=== PATIENT | female | born 1975 | race Caucasian/White ===

== ENCOUNTER 2024-10-03 02:42 | Emergency (ER) | payer SELFPAY ==
[2024-10-03 02:53] VITALS: BP 188/145; PULSE 83; RESP 20; TEMP 36.5; O2SAT 99; BMI 25.9
[2024-10-03] MEDS: morphine 4 mg/mL SDV 1 mL IVP ×2 (03:22→04:47)
[2024-10-03] MEDS: orphenadrine 30 mg/mL Inj 2 mL 60 MG IM (03:22)
--- NOTE | 2024-10-03 03:59 | ED_ITS ---
HPI - Extremity Problem General: Chief complaint: Extremity Problem,Nontraumatic Stated complaint: Syatic nerve swelling RT foot Time Seen by Provider: 10/03/24 02:50 History of Present Illness: 49-year-old female comes in the emergenc y department right leg pain radiating down into her foot up from her back. She was seen a few days ago and prescribed steroids and tizanidine. She did not get the prednisone because she had googled it and thought it was too dangerous to take. No other injury. Associated symptoms: Deny chest pain, fever(s) or rash Related Data Previous Rx's ?Medication ?Instructions ?Recorded naproxen 500 mg tablet 500 mg PO BID #30 tabs 09/30 prednisone 20 mg tablet See Rx Instructions PO DAILY #19 09/30/24 tabs tizanidine 2 mg tablet 2 mg PO BID PRN muscle spast icity 09/30/24 #30 tabs hydrocodone 5 mg-acetaminophen 325 1 tab PO Q6H PRN pa in #12 tabs 10/03/24 mg tablet pregabalin 75 mg capsule (Lyrica) 75 mg PO BID #30 cap s 10/03/24 Allergies Allergy/AdvReac Type Severity Reaction Status Date / Time Penicillins Allergy Mild ALGY-Hives Verified 09/30/24 15:23 Review of Systems Const: Denies: fever(s) or chills Card: Denies: chest pain Resp: Denies: dyspnea GI: Denies: abdominal pain : Denies: dysuria, urinary frequency or urinary urgency Musc: Reports: back pain; Denies: neck pain Skin/Breast: Denies: rash PFSH ED PFSH: Social History Smoking and tobacco/nicotine status: current every day tobacco/nicotine user Physical Exam Const: GENERAL APPEARANCE: cooperative ORIENTATION/CONSCIOUSNESS: Yes a wake, Yes oriented to person, Yes oriented to place and Yes oriented to time HENMT: COMMON NORMALS: normocephalic, atraumatic and hearing grossly normal bilaterally HEAD & SCALP: normocephalic and atraumatic Resp: COMMON NORMALS: normal respiratory effort, No retractions, No use of accessory muscles and clear to auscultation bilaterally AUSCULTATION: clear to auscultation bilaterally Cardio: COMMON NORMALS: regular rate, regular rhythm and No murmurs present (Cardio) RATE: regular rate RHYTHM: regular rhythm Extremity: COMMON NORMALS: normal to inspection, capillary refill normal, no clubbing, cyanosis or edema, no calf tenderness and no pedal edema Neuro: SENSORIUM/ORIENTATION: Yes oriented to person, Yes oriented to place and Yes oriented to time OTHER: Straight leg raising positive on the right negative on the left deep tendon reflexes +1 and 4 in the left patellar tendon absent on the right. +1/4 bilaterally at the Achilles. Dorsum plantarflexion drinks 5-5 sensation to the lower extremities normal bilaterally Skin: COMMON NORMALS: no rashes or lesions noted GENERAL SKIN EXAM: no rashes or lesions noted Course Vital Signs: Vital signs: Vital Signs Temperature 97.7 F 10/03/24 02:53 Pulse Rate 78 10/03/24 05:00 Respiratory Rate 16 10/03/24 05:00 Blood Pressure 149/102 10/03/24 05:00 Pulse Oximetry 95 10/03/24 05:00 Oxygen Delivery Me thod Room Air 10/03/24 05:00 MDM - Extremity (Nontraumatic) Medical Decision Making Gave several medications patient states she is feeling better and wants to go home she seems somewhat uncomfortable yet but she assures me she is ready to go home. We did encourage her to take the steroids discussed with her that the side effects steroids are relatively limited for short courses. Additionally gave her Lyrica and hydrocodone she should follow-up with the orthopedic spine clinic will have case management make her an appointment. Bladder scan shows no retained urine. She has not been having any fecal incontinence no red flags for cauda equina at this time. No radiology studies performed this visit Discharge Plan Discharge Patient Disposition: Home Clinical Impression: Sciatica Qualifiers: Laterality: right Qualified Code(s): M54.31 - Sciatica, right side Condition: Stable Prescriptions: New pregabalin [Lyrica] 75 mg capsule 75 mg PO BID Qty: 30 0RF hydrocodone-acetaminophen 5-325 mg tablet 1 tab PO Q6H PRN (Reason: pain) Qty: 12 0RF No Action prednisone 20 mg tablet See Rx Instructions PO DAILY Qty: 19 0RF Rx Instructions: orally daily; Take 3 tabs daily x 3 days Take 2 tabs daily x 3 days Take 1 tab daily x 3 days Take 1/2 tab daily x 2 days naproxen 500 mg tablet 500 mg PO BID Qty: 30 0RF tizanidine 2 mg tablet 2 mg PO BID PRN (Reason: muscle spasticity) Qty: 30 0RF Discharge Orders: Discharge ED (Routine); Ordered 10/03/24 Ordered By: Srinivas Diaz Discharge Diet: Usual diet Discharge Activity: Increase activity as tolerated Patient Instructions: Lumbar Radiculopathy (ED), Opioid Safety, Pain Management, Patient Portal & Sumeet Instructions Activity Restrictions/Additional Instructions: [facility] [place] [facility]. It is very important that you follow up as instructed or that you return to the Emergency Department should you have concerns or if your condition changes or worsens in any way. He was seen in the emergency room with complaint of back pain with pain radiating to your right leg. Would recommend that you take the steroid taper as prescribed you are also given Lyrica to use 1 tablet twice a day continue to use naproxen and tizanidine your previously prescribed follow-up your primary care doctor if not improving you may need referral for physical therapy. Print Language: Portuguese Coding Level of Care Code ED Mobile Application Architect for Wayne Cates
[2024-10-03 04:00] VITALS: BP 148/92; PULSE 78; RESP 16; O2SAT 95
[2024-10-03 05:00] VITALS: BP 149/102; PULSE 78; RESP 16; O2SAT 95
[2024-10-03 06:11] VITALS: BP 165/87; PULSE 76; RESP 16; O2SAT 96
--- NOTE | 2024-10-03 09:54 | DCPLANNER ---
messaged ortho for er f/u
== END 2024-10-03 06:16 | disposition home or self-care (01) ==
PROVIDERS: Emergency Provider Family Medicine
DX: M54.31 Sciatica, right side (principal)
CPT/HCPCS: 51798; 96372; 96374; 96375; 96376; 99284; J1100; J1885; J2270; J2360